=== PATIENT | female | born 1995 | race Caucasian/White ===

== ENCOUNTER 2021-05-24 15:55 | Inpatient (IN) | payer OTHER ==
[~2021-05-24] VITALS: Ht 170.2 cm; Wt 131.0 kg
[~2021-05-24 15:55] MED LIST: ACET325 PO; AMOX500 PO; BCP; CODACE30 PO; DOXY100 PO; EXPECTA PRENAT1 EACH; IBUP400 PO; IBUP800 PO; LABE100; PENVK500 PO; PHENA100 PO; SERT50 PO
[2021-05-24 17:12] LABS: BASOPHILS ABSOLUTE AUTO 0.03 K/mm3 (0.00-0.23); BASOPHILS PERCENT AUTO 0 % (0-2); EOSINOPHILS ABSOLUTE AUTO 0.08 K/mm3 (0.00-0.68); EOSINOPHILS PERCENT AUTO 1 % (0-6); Hematocrit 38.4 % (33.0-51.0); Hemoglobin 12.7 g/dL (11.5-16.0); IMMATURE GRAN ABSOLUTE AUTO 0.08 K/mm3 (0.00-0.10); IMMATURE GRAN PERCENT AUTO 1 % (0-1); LYMPHOCYTES ABSOLUTE AUTO 2.05 K/mm3 (0.84-5.20); LYMPHOCYTES PERCENT AUTO 23 % (21-46); MONOCYTES ABSOLUTE AUTO 0.94 K/mm3 (0.16-1.47); MONOCYTES PERCENT AUTO 10 % (4-13); Mean Corpuscular HGB Conc 33.1 g/dL (31.5-36.5); Mean Corpuscular Volume 88 fL (80-100); NEUTROPHILS PERCENT AUTO 65 % (41-73); RDW Coefficient Variation 12.9 % (11.7-14.2); RDW Standard Deviation 41.1 fL (35.1-46.3); Red Blood Cell Count 4.38 M/mm3 (3.80-5.20); White Blood Cell Count 9.08 K/mm3 (4.00-11.30)
[2021-05-24 17:20] LABS: Influenza A, PCR NEGATIVE (NEGATIVE); Influenza B, PCR NEGATIVE (NEGATIVE); Resp Syncytial Virus, PCR NEGATIVE (NEGATIVE)
[2021-05-24 17:21] LABS: SARS-Cov-2 (COVID-19) PCR, MMC POSITIVE (NEGATIVE)
[2021-05-24 17:28] LABS: Mean Platelet Volume 12.4 fL (9.1-12.4); Platelet Count 245 K/mm3 (150-400)
[2021-05-26 06:01] LABS: Hematocrit 32.2 % (33.0-51.0); Hemoglobin 10.8 g/dL (11.5-16.0); Mean Corpuscular HGB 29.5 pg (26.0-34.0); Mean Corpuscular HGB Conc 33.5 g/dL (31.5-36.5); Mean Corpuscular Volume 88 fL (80-100); Platelet Count 215 K/mm3 (150-400); RDW Coefficient Variation 12.8 % (11.7-14.2); RDW Standard Deviation 41.1 fL (35.1-46.3); Red Blood Cell Count 3.66 M/mm3 (3.80-5.20); White Blood Cell Count 14.61 K/mm3 (4.00-11.30)
--- NOTE | 2021-05-26 11:40 | NUR ---
report to abram eisenberg
--- NOTE | 2021-05-26 12:36 | NUR ---
script called to [facility] talked to [facility] pharmacist. at 1239. called ibuprofen 800mg po q8hr prn pain amount 50
--- NOTE | 2021-05-26 13:30 | NUR ---
pt reports doing well, lights are off for them to rest. have check on pt a few times from the door
[2021-05-26] MEDS ORDERED: IBU800 MG PO (14:04)
--- NOTE | 2021-05-26 22:01 | NUR ---
DISCHARGE SUMMARY DISCHARGE TEACHING GIVEN, PATIENT HAS NO QUESTIONS OR CONCERNS. ID BANDS MATCH WITH DAVID BAPTISTE. PATIENT INSTRUCTED TO FOLLOW UP IN [facility] TOMORROW AT 3.
== END 2021-05-26 22:10 | disposition home or self-care (01) | DRG 805 ==
LOC: BC 15:55 → OBS 15:55 → BC 16:24
PROVIDERS: ADMIT Nurse Practitioner Obstetrics & Gynecology
PROC: 10E0XZZ Delivery of Products of Conception, External Approach (ICD-10-PCS; principal; 2021-05-25)
PROC: 3E0R3BZ Introduction of Anesthetic Agent into Spinal Canal, Percutaneous Approach (ICD-10-PCS; 2021-05-25)
PROC: 00HU33Z Insertion of Infusion Device into Spinal Canal, Percutaneous Approach (ICD-10-PCS; 2021-05-25)
PROC: 3E0134Z Introduction of Serum, Toxoid and Vaccine into Subcutaneous Tissue, Percutaneous Approach (ICD-10-PCS; 2021-05-25)
DX: O36.63X0 Maternal care for excessive fetal growth, third trimester, not applicable or unspecified (principal); U07.1 COVID-19; Z37.0 Single live birth; O98.52 Other viral diseases complicating childbirth; Z3A.39 39 weeks gestation of pregnancy; I95.9 Hypotension, unspecified; O75.89 Other specified complications of labor and delivery; Z23 Encounter for immunization; O77.0 Labor and delivery complicated by meconium in amniotic fluid; Z79.899 Other long term (current) drug therapy
CPT/HCPCS: 0241U; 36415; 51702; 59070; 85025; 85027; 86850; 86900; 86901; 90471; 90707; A9270; J1200; J1885; J2001; J2210; J2405; J2590; J3010; J3430; J7030; J7120